=== PATIENT | male | born 1995 | race Native Hawaiian/Other Pacific Islander ===

== ENCOUNTER 2018-07-26 09:44 | Emergency (ER) | payer MEDICAID, SELFPAY ==
[2018-07-26 09:55] VITALS: BP 154/85; PULSE 70; RESP 18; TEMP 36.9; O2SAT 100
--- NOTE | 2018-07-26 10:34 | W.ED.GENAD ---
Discharge Plan Disposition Patient Disposition: HOME Discharge Details Chief Complaint: Urinary Clinical Impression: Lesion of penis, Elevated blood pressure reading Primary Care Provider: TRINH,LOCAL ED Provider: Zeus Mckenzie Home Meds and New Rx's Prescriptions: Continue fluticasone [Flovent HFA] 110 mcg/actuation Hfa Aerosol Inhaler 2 puff Inhalation BID RF: 0 Discharge Instructions Instructions: Hypertension (ED) Additional Instructions: Your blood pressure was elevated today. This needs to be followed up by her primary care physician. Your measurement today was 158/85. Urine cultures were done today to look for STDs. These results are pending. Please contact your primary care physician to arrange follow-up. Call today to make an appointment. Return to the ER for any worsening or new concerning symptoms. Discharge Data Discharge Date/Time-TO BE ENTERED AT DEPARTURE: 07/26/18 11:00 Medical Decision Making 22yo m with papule shaft of penis. No penile discharge. No ulceration. Possible early genital wart. Given recent dysuria, now resolved, and STD exposure, will check urine for GC/chlamydia. Advised barrier protection and follow-up with PCP. HPI General Mode of arrival: ambulatory. Date/Time Provider Initiated Documentation: 07/26/18 10:17. Limitations to Documentation: no limitations. Information obtained by: patient. HPI Narrative: 22-year-old male presents with chief complaint of lump on his penis. Patient notes that he has had a small lump similar to a pimple on his right penis for the past 5 days. No other rash. No penile discharge. He does note that he had some mild dysuria about a week ago that resolved. He is specifically concerned that he could have herpes as he had unprotected sex with a female partner who did not disclose to him that she had herpes in April 2018. Related Data Home Medications Medication Instructions Recorded Confirmed fluticasone [Flovent HFA] 2 puff INHALATION BID 07/26/18 07/26/18 Allergies Allergy/AdvReac Type Severity Reaction Status Date / Time No Known Allergies Allergy Unverified 07/26/18 09:58 General Stated Complaint: Urinary JANIE: 4 Review of Systems Genitourinary Reports as per HPI and Denies penile discharge Integumentary/Breasts Reports as per HPI and Denies skin ulcer PFSH Social History Smoking/Tobacco Use Status: Never Exam Const General: cooperative and no acute distress [facility] Head: normocephalic and atraumatic Mouth: moist mucous membranes Eyes Conjunctivae: normal conjunctivae Resp Auscultation: clear to auscultation bilaterally, no rales, no rhonchi and no wheezes Cardio Jugular venous pressure: no JVD Rate: regular rate and not tachycardic Rhythm: regular rhythm GI Palpation: soft, not firm, no guarding, no masses, not rigid and nontender Penis: not erythematous, papules (single 2mm papule rt mid shaft penis), no pustules and no ulcerations Meatus: meatus normal Scrotum: scrotum normal and no scrotal swelling Testes: normal Skin General skin exam: no rashes or lesions noted Neuro General: alert, awake, oriented x3 and tone normal Course Vital Signs Temperature 36.9 C 07/26/18 09:55 Pulse 70 07/26/18 09:55 Respiratory Rate 18 07/26/18 09:55 Blood Pressure 154/85 H 07/26/18 09:55 Pulse Oximetry 100 07/26/18 09:55 Temperature 36.9 C 07/26/18 09:55 Temperature Source Skin 07/26/18 09:55 Pulse 70 07/26/18 09:55 Respiratory Rate 18 07/26/18 09:55 Respiratory Effort 07/26/18 09:57 Blood Pressure 154/85 H 07/26/18 09:55 Blood Pressure Position Sitting 07/26/18 09:55 Pulse Oximetry 100 07/26/18 09:55 Oxygen Delivery Method Room Air 07/26/18 09:55 Oxygen Flow Rate 0 07/26/18 09:55 Pain Level 0 07/26/18 09:55
[2018-07-27 14:11] LABS: Chlamydia Result Negative; GC Result Negative; Specimen Description URINE
--- NOTE | 2018-07-30 01:31 | ED.GENADUL_ITS ---
Discharge Plan Disposition Patient Disposition: HOME Discharge Details Chief Complaint: Urinary Clinical Impression: Lesion of penis, Elevated blood pressure reading Primary Care Provider: TRINH,[place] ED Provider: Zeus Mckenzie Home Meds and New Rx's Prescriptions: Continue fluticasone [Flovent HFA] 110 mcg/actuation Hfa Aerosol Inhaler 2 puff Inhalation BID RF: 0 Discharge Instructions Instructions: Hypertension (ED) Additional Instructions: Your blood pressure was elevated today. This needs to be followed up by her primary care physician. Your measurement today was 158/85. Urine cultures were done today to look for STDs. These results are pending. Please contact your primary care physician to arrange follow-up. Call today to make an appointment. Return to the ER for any worsening or new concerning symptoms. Discharge Data Discharge Date/Time-TO BE ENTERED AT DEPARTURE: 07/26/18 11:00 Medical Decision Making 22yo m with papule shaft of penis. No penile discharge. No ulceration. Possible early genital wart. Given recent dysuria, now resolved, and STD exposure, will check urine for GC/ chlamydia. Advised barrier protection and follow-up with PCP. HPI General Mode of arrival: ambulatory . Date/Time Provider Initiated Documentation: 07/26/18 10:17 . Limitations to Documentation: no limitations . Information obtained by: patient . HPI Narrative: 22-year-old male presents with chief complaint of lump on his penis. Patient notes that he has had a small lump similar to a pimple on his right penis for the past 5 days. No other rash. No penile discharge. He does note that he had some mild dysuria about a week ago that resolved. He is specifically concerned that he could have herpes as he had unprotected sex with a female partner who did not disclose to him that she had herpes in April 2018. Related Data Home Medications Medication Instructions Recorded Confirmed fluticasone [Flovent HFA] 2 puff INHALATION BID 07/26/18 07/26/18 Allergies Allergy/AdvReac Type Severity Reaction Status Date / Time No Known Allergies Allergy Unverified 07/26/18 09:58 General Stated Complaint: Urinary JANIE: 4 Review of Systems Genitourinary Reports as per HPI and Denies penile discharge Integumentary/Breasts Reports as per HPI and Denies skin ulcer PFSH Social History Smoking/Tobacco Use Status: Never Exam Const General: cooperative and no acute distress [facility] Head: normocephalic and atraumatic Mouth: moist mucous membranes Eyes Conjunctivae: normal conjunctivae Resp Auscultation: clear to auscultation bilaterally, no rales, no rhonchi and no wheezes Cardio Jugular venous pressure: no JVD Rate: regular rate and not tachycardic Rhythm: regular rhythm GI Palpation: soft, not firm, no guarding, no masses, not rigid and nontender Penis: not erythematous, papules (single 2mm papule rt mid shaft penis), no pustules and no ulcerations Meatus: meatus normal Scrotum: scrotum normal and no scrotal swelling Testes: normal Skin General skin exam: no rashes or lesions noted Neuro General: alert, awake, oriented x3 and tone normal Course Vital Signs Temperature 36.9 C 07/26/18 09:55 Pulse 70 07/26/18 09:55 Respiratory Rate 18 07/26/18 09:55 Blood Pressure 154/85 H 07/26/18 09:55 Pulse Oximetry 100 07/26/18 09:55 Temperature 36.9 C 07/26/18 09:55 Temperature Source Skin 07/26/18 09:55 Pulse 70 07/26/18 09:55 Respiratory Rate 18 07/26/18 09:55 Respiratory Effort 07/26/18 09:57 Blood Pressure 154/85 H 07/26/18 09:55 Blood Pressure Position Sitting 07/26/18 09:55 Pulse Oximetry 100 07/26/18 09:55 Oxygen Delivery Method Room Air 07/26/18 09:55 Oxygen Flow Rate 0 07/26/18 09:55 Pain Level 0 07/26/18 09:55
== END 2018-07-26 11:00 | disposition home or self-care (01) ==
LOC: ER 11:12
PROVIDERS: Emergency Provider Student in an Organized Health Care Education/Training Program
DX: N48.89 Other specified disorders of penis (principal); Z20.2 Contact with and (suspected) exposure to infections with a predominantly sexual mode of transmission; R03.0 Elevated blood-pressure reading, without diagnosis of hypertension
CPT/HCPCS: 87491; 87591; 99283